=== PATIENT | female | born 1940 | race Caucasian/White ===

== ENCOUNTER 2023-09-12 07:54 | Emergency (ER) | payer OTHER, SELFPAY ==
[2023-09-12 07:55] VITALS: BP 194/93
--- NOTE | 2023-09-12 09:19 | ED.GENMED ---
History of Present Illness
General
Chief Complaint: Eye Problems
Source: patient
Exam Limitations: none
Time Seen by Provider: 09/12/23 08:33
Nursing documentation reviewed up to this point in time: agreed with
Travel History
Have you had any contact with someone who has COVID-19?: No
Do you have any symptoms of coronavirus? Fever > 100 degrees, chills, cough, shortness of breath, sore throat, loss of taste or smell, muscle aches, or headache?: No
History of Present Illness
History of Present Illness:
83-year-old female with past medical history of diabetes hypertension dementia presenting to the emergency department today with concerns of redness and irritation to the right eye over the past few days. They do report having cataract surgery 2
years ago well. Denies significant changes in vision or additional concerns.
Past History
Past History
ED Past Medical History: Asthma, HTN, NIDDM and Other (Dementia, Kidney stones)
ED Past Surgical History: Cholecystectomy and Other (Eye and ear surgery)
Social History
Tobacco: Non-smoker
Alcohol: None
Personal:
Living: with family
Review of Systems
Review of Systems
Allergies reviewed?: Yes
All Other Systems: ROS reviewed and negative except as documented in HPI and ROS
Phy Exam
Physical Exam
Physical Exam:
GENERAL: Alert , in no apparent distress
EYE: Redness and swelling to the eyelids as well as the conjunctiva. Ciliary sparing normal-appearing anterior chamber normal eye pressures of 16 and 17 with multiple assessments with the tonometer. No foreign body seen no fluorescein uptake to
the cornea. Normal extraocular movements and pupil reaction. Patient able to see in all quadrants. Patient able to correctly identify numbers with the and claims that her vision is normal. Pupils equal and reactive
NECK: Supple, no significant adenopathy.
ENT: o/p clr, mmm.
CARDIAC: Regular rate and rhythm .
LUNGS: Clear breath sounds bilaterally, no acute respiratory distress, no wheezes/rales/rhonchi
ABDOMEN: Soft, without focal tenderness, no r/g, no cvat
NEUROLOGICAL: Alert and oriented, no focal neuro deficits
SKIN: Warm and dry, skin intact.
MUSCULOSKELETAL: No edema, well perfused.
PSYCH: Normal and appropriate interaction.
Course
Orders/Labs/Results
Orders:
Orders
09/12/23 09:13
Amoxicillin 875 mg/Clav 125 mg [Augmentin 875 mg/125 mg] 1 tablet PO NOW STA
Erythromycin (Ilotycin) [Erythromycin 0.5% Ophthalmic Ointment] See Dose Instructions OPHTH NOW STA
Vital Signs
Initial and Last Documented VS:
Initial Vital Signs
Temp Pulse Resp BP Pulse Ox
98.2 F 63 18 194/93 93
09/12/23 07:55 09/12/23 07:55 09/12/23 07:55 09/12/23 07:55 09/12/23 07:55
Last Documented Vital Signs
Temp Pulse Resp BP Pulse Ox
98.2 F 63 18 194/93 93
09/12/23 07:55 09/12/23 07:55 09/12/23 07:55 09/12/23 07:55 09/12/23 07:55
MDM/Problems Addressed
MDM/Problems Addressed:
83-year-old female presenting to the emergency department today with concerns of redness and irritation to the right eye over the past few days. Here she has a reassuring examination other than redness and irritation but also some swelling to the
surrounding eyelids potentially consistent with an early preseptal cellulitis or conjunctivitis. Patient started on erythromycin as well as Augmentin. Otherwise no evidence of acute angle-closure glaucoma considering normal pressures normal
corneal examination. Good extraocular movements and good vision. Stable for discharge return precautions given. Additionally the patient had an elevated blood pressure here it was initially 190 and then she took her normal daily blood pressure
medications it then improved to the 170s over 80s. She denies any chest pain shortness of breath or any signs of hypertensive emergency. She will follow-up closely with the primary care doctor.
*Critical Care Note
Total Time (30-74mins, 75-104mins- exclusive of procedures): Not Applicable
ED Attending Note
-
Portions of this chart may have been created with voice recognition software.� Occasional wrong word or��sound alike� substitutions may have occurred due to the inherent limitations of voice recognition software.
Discharge Plan
Departure
Patient Disposition: Home (Routine Discharge)
Date of Disposition: 09/12/23
Time of Disposition: :
Patient with high blood pressure during this ER visit?: Yes
Condition: Good
Covid-19: Not Applicable
Discharge Problem:
Preseptal cellulitis of right eye, HBP (high blood pressure)
Instructions: Conjunctivitis ([place]keye) (DC), BLOOD PRESSURE
Prescriptions:
New
amoxicillin-pot clavulanate 875-125 mg tablet
1 tab PO BID 7 Days Qty: 14 0RF
No Action
fluconazole 200 mg tablet
200 mg PO .[id number]
Patient Comments:
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
acetaminophen [Tylenol] 325 mg Tablet
650 mg PO QIDPRN PRN (Reason: mild pain)
diphenhydramine HCl [Benadryl] 25 mg Capsule
25 mg PO DAILYPRN PRN (Reason: allergies)
nystatin 100,000 unit/gram Powder
1 applic TOPICAL HS
ipratropium-albuterol 0.5 mg-3 mg(2.5 mg base)/3 mL Solution For Nebulization
3 ml inhalation R BID Qty: 60 0RF
ipratropium-albuterol 0.5 mg-3 mg(2.5 mg base)/3 mL Solution For Nebulization
3 ml inhalation R Q4HPRN PRN (Reason: sob or wheezing) Qty: 30 0RF
valsartan 80 mg Tablet
160 mg PO DAILY Qty: 60 0RF
amlodipine 5 mg Tablet
5 mg PO DAILY Qty: 30 0RF
budesonide 0.25 mg/2 mL Suspension For Nebulization
0.25 mg inhalation R BID Qty: 60 0RF
prednisone 10 mg tablet
10 mg feeding tube DAILY Qty: 30 0RF
Rx Instructions:
Taper: 40mg daily x 3 days, 30mg daily x 3 days, 20mg daily x 3 days, 10mg daily x 3 days
Referrals:
Bradford Irene I., DO [Family Provider] -
Activity Restrictions/Additional Instructions:
You came to the emergency department today with concerns of eye irritation. You are found to have likely infection to the outer eye. Please use the erythromycin 3 times daily as well as the twice daily for the next 7 days. Please have close with
the primary care doctor for your blood pressure. Return to the emergency department for any worsening, new or concerning symptoms.
Interventions
Interventions:
*Risk Screen - Suicide Last Done: 09/12/23 07:58
*General Assessment Last Done: 09/12/23 07:58
*Neglect/Abuse Screening Last Done: 09/12/23 07:58
ED- Fall Risk Assessment Last Done: 09/12/23 08:28
*ED COVID-19 Vaccine History Last Done: 09/12/23 08:28
Discharge Date and Time
Print Language: ICELANDIC
[2023-09-12 09:21] VITALS: BMI 27.0
[2023-09-12] MEDS: ERYTHROMYCIN 0.5% OPHTHALMIC OINTMENT 1 APPLIC OPHTH (09:32)
[2023-09-12] MEDS: AUGMENTIN 875 MG/125 MG 1 TABLET PO (09:32)
== END 2023-09-12 09:53 | disposition home or self-care (01) ==
LOC: EMR 07:54
PROVIDERS: EMERGENCY PHYSICIAN Emergency Medicine; FAMILY PHYSICIAN Internal Medicine
DX: L03.213 Periorbital cellulitis (principal); I10 Essential (primary) hypertension; H53.8 Other visual disturbances; J45.909 Unspecified asthma, uncomplicated; E11.9 Type 2 diabetes mellitus without complications; F03.90 Unspecified dementia, unspecified severity, without behavioral disturbance, psychotic disturbance, mood disturbance, and anxiety; Z87.442 Personal history of urinary calculi; Z90.49 Acquired absence of other specified parts of digestive tract
CPT/HCPCS: 99282

== ENCOUNTER 2023-12-02 16:32 | Emergency (ER) | payer OTHER, SELFPAY ==
[2023-12-02 16:34] VITALS: BP 202/98
[2023-12-02 17:38] VITALS: BP 193/90; BMI 31.1
[2023-12-02 18:00] VITALS: BP 191/89
[2023-12-02 18:19] LABS: % Basophils 0.5 % (0-2); % Eosinophils 1.4 % (0-6); % Immature Granulocytes 0.6 % (0-0.5); % Lymphocytes 22.9 % (20.5-51.1); % Monocytes 7.5 % (1.7-9.3); % Neutrophils 67.1 % (42.2-75.2); Absolute Basophils 0.1 10^3/uL (0-0.2); Absolute Eosinophils 0.2 10^3/uL (0-0.7); Absolute Immature Granulocytes 0.1 10^3/uL (0-0.05); Absolute Lymphocytes 2.6 10^3/uL (1.2-3.4); Absolute Monocytes 0.9 10^3/uL (0.1-0.6); Absolute Neutrophils 7.8 10^3/uL (1.4-6.5); Hemoglobin 14.7 g/dL (12.0-16.0); Mean Corpuscular Hgb 30.3 pg (27.0-31.0); Mean Corpuscular Volume 86.6 fL (81.0-99.0); Mean Platelet Volume 10.8 fL (7.4-10.4); Nucleated Red Blood Cells % 0 %; Platelet Count 275 10^3/uL (130-400); Red Blood Cell Count 4.85 10^6/uL (4.20-5.40); Red Cell Dist. Width 13.6 % (11.5-14.5); White Blood Cell Count 11.6 10^3/uL (4.8-10.8)
[2023-12-02 18:46] LABS: ALT (SGPT) 19 U/L (0-35); AST (SGOT) 29 U/L (14-36); Albumin 4.8 g/dl (3.5-5.0); Alkaline Phosphatase 103 U/L (38-126); Blood Urea Nitrogen 19 mg/dl (7-17); Calcium 11.4 mg/dl (8.4-10.2); Carbon Dioxide 24 mmol/L (22-30); Chloride 104 mmol/L (98-107); Estimated Creatinine Clearance 52 ml/min; Glucose 124 mg/dl (70-99); Potassium 4.5 mmol/L (3.5-5.1); Sodium 141 mmol/L (135-145); Total Bilirubin 1.2 mg/dl (0.2-1.3); Total Protein 8.7 g/dl (6.3-8.2); eGFR > 60.00
[2023-12-02 19:00] VITALS: BP 171/76
--- NOTE | 2023-12-02 19:24 | ED.GENMED ---
History of Present Illness
General
Chief Complaint: Blood Pressure Problem
Source: patient and family
Exam Limitations: none
Time Seen by Provider: 12/02/23 19:06
Nursing documentation reviewed up to this point in time: agreed with
History of Present Illness
History of Present Illness:
83-year-old Bulgarian lady with hypertension chronic lung disease accompanied by by her daughter who is her malt specifications control assistant was not present open about 3 weeks ago when she was there she had her meds adjusted put on combination med calcium channel thien
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
dizzy vomited some numbness and tingling of her bilateral arms, daughter gave her a dose of her evening valsartan appears to be similar medication to the one described although did not have the hydrochlorothiazide she vomited that up, brought here
to the ER hypertensive, denied any chest pain has chronic leg edema she is hungry
Past History
Past History
ED Past Medical History: Asthma, HTN, NIDDM and Other (Dementia, Kidney stones)
ED Past Surgical History: Cholecystectomy and Other (Eye and ear surgery)
Social History
Tobacco: Non-smoker
Alcohol: None
Drug: None
Personal:
Living: with family
Employment: Retired
Review of Systems
Review of Systems
Other source history: family
All Other Systems: Not applicable
Constitutional: Denies fever or chills
Respiratory: Denies cough, hemoptysis or trouble breathing
Cardiac: Denies diaphoresis
ABD/GI: Reports nausea and vomiting
: Reports no symptoms
Musculoskeletal: Reports edema
Neurological: Reports headache and weakness
Endocrine: Reports no symptoms
Phy Exam
Physical Exam
Physical Exam:
Physical Exam
General: no apparent distress, not acutely ill
Neck: No jaundice
Heart: Regular
Lungs: Bibasilar crackle
Abdomen: Nontender
Neuro: alert and oriented. no focal neurological deficits
Skin: no rash
Psychiatric: cooperative
Extremities: Edema is present
Course
Orders/Labs/Results
Orders:
Orders
12/02/23 16:37
ECG [Electrocardiogram (*1)] Urgent
Reason for Study: Vertigo / Dizzy
EKG- Treatment ONCE
12/02/23 18:13
Complete Blood Count/With Diff Urgent
Comprehensive Metabolic Panel Urgent
12/02/23 19:21
Add On- LAB Urgent
Tests Added?: pBNP
CT Head W/o Iv Contrast Urgent
Comment:
Reason For Exam: vomiting
12/02/23 19:22
CR Chest - 2 Views Urgent
Comment:
Reason For Exam: chf
12/02/23 19:52
NT-proBNP Urgent
Troponin I Urgent
12/02/23 20:44
Valsartan [Diovan] 80 mg PO NOW STA
Abnormal Lab Results
12/02/23
18:13
WBC 11.6 H 10^3/uL
(4.8-10.8)
MPV 10.8 H fL
(7.4-10.4)
Abs Immat Gran (auto) 0.1 H 10^3/uL
(0-0.05)
Absolute Neuts (auto) 7.8 H 10^3/uL
(1.4-6.5)
Absolute Monos (auto) 0.9 H 10^3/uL
(0.1-0.6)
Immature Gran % 0.6 H %
(0-0.5)
BUN 19 H mg/dl
(7-17)
Glucose 124 H mg/dl
(70-99)
Calcium 11.4 H mg/dl
(8.4-10.2)
Total Protein 8.7 H g/dl
(6.3-8.2)
12/02/23 18:13
12/02/23 18:13
Vital Signs
Initial and Last Documented VS:
Initial Vital Signs
Temp Pulse Resp BP Pulse Ox
97.6 F 73 20 202/98 96
12/02/23 16:34 12/02/23 16:34 12/02/23 16:34 12/02/23 16:34 12/02/23 16:34
Last Documented Vital Signs
Temp Pulse Resp BP Pulse Ox
97.6 F 67 14 171/76 94
12/02/23 16:34 12/02/23 20:00 12/02/23 20:00 12/02/23 19:00 12/02/23 20:00
MDM/Problems Addressed
Differential Diagnosis Includes:
Accelerated hypertension intracerebral hemorrhage conceivably ACS or heart failure
MDM/Problems Addressed:
High blood pressure vomiting
Chronic conditions affecting care: HTN
Acute Exacerbation and/or Progression of Chronic Illness: HTN
*Radiology
Radiology exam reviewed: preliminary read by ED provider
*Pulse Oximetry
Patient hypoxic: no
*EKG
Interpreted by ED Provider?: Yes
Interpretation: abnormal
Comparison EKG: no comparison EKG present
Heart Rate: 78
Rate: normal
Rhythm: sinus
Ischemia: non-specific ST changes
*Operations Inspector Interpretation
Rate: normal
Interpretation: normal
Heart Rate: 78
Rhythm: sinus
*Critical Care Note
Total Time (30-74mins, 75-104mins- exclusive of procedures): Not Applicable
Update Note
Update Note:
Update labs noted imaging noted CT report noted will give her her as needed blood pressure pill which she likely vomited this evening,
ED Attending Note
-
Portions of this chart may have been created with voice recognition software.� Occasional wrong word or��sound alike� substitutions may have occurred due to the inherent limitations of voice recognition software.
Discharge Plan
Departure
Patient Disposition: Home (Routine Discharge)
Date of Disposition: 12/02/23
Time of Disposition: 21:16
Patient with high blood pressure during this ER visit?: Yes
Condition: Good
Discharge Problem:
HBP (high blood pressure)
Instructions: High Blood Pressure (DC)
Prescriptions:
No Action
acetaminophen [Tylenol] 325 mg Tablet
650 mg PO QIDPRN PRN (Reason: mild pain)
amlodipine 5 mg Tablet
5 mg PO DAILY Qty: 30 0RF
Patient Comments:
12/02/23: Part of [facility] pill (Bulgarian)
montelukast 10 mg Tablet
10 mg PO DAILY
cholecalciferol (vitamin D3) [Vitamin D3] 25 mcg (1,000 unit) Tablet
25 mcg PO DAILY
Trelegy Ellipta 200-62.5-25 mcg Blister With Device
1 inh INHALATION R DAILY
valsartan-hydrochlorothiazide 160-12.5 mg Tablet
1 tab PO DAILY
Patient Comments:
12/02/23: Part of [facility] pill (Bulgarian)
valsartan 80 mg tablet
80 mg PO DAILYPRN PRN (Reason: BP>160)
Referrals:
Bradford Irene I., DO [Family Provider] - Next open appointment
Activity Restrictions/Additional Instructions:
Take your medications as prescribed, you can use Zofran for nausea or vomiting Tylenol for headache
Interventions
Interventions:
*Risk Screen - Suicide Last Done: 12/02/23 17:39
*General Assessment Last Done: 12/02/23 17:39
*Neglect/Abuse Screening Last Done: 12/02/23 17:39
ED- Cardiac Assessment Last Done: 12/02/23 18:10
ED- Neurological Assessment Last Done: 12/02/23 18:10
ED- Pulmonary Assessment Last Done: 12/02/23 18:10
Discharge Date and Time
Print Language: K[place]ILI
[2023-12-02 20:26] LABS: NT-proBNP 80.8 pg/ml; Troponin I < 0.012 ng/ml
[2023-12-02] MEDS: DIOVAN 80 MG PO (20:52)
[2023-12-02 20:54] VITALS: BP 156/76
[2023-12-02 21:00] VITALS: BP 151/82
== END 2023-12-02 21:50 | disposition home or self-care (01) ==
LOC: EMR 16:32
PROVIDERS: Emergency Medicine; EMERGENCY PHYSICIAN Emergency Medicine; FAMILY PHYSICIAN Internal Medicine
DX: R42 Dizziness and giddiness (principal); R11.2 Nausea with vomiting, unspecified; I10 Essential (primary) hypertension; R60.0 Localized edema; R20.0 Anesthesia of skin; E11.9 Type 2 diabetes mellitus without complications; F03.90 Unspecified dementia, unspecified severity, without behavioral disturbance, psychotic disturbance, mood disturbance, and anxiety; J45.909 Unspecified asthma, uncomplicated; Z87.442 Personal history of urinary calculi; Z90.49 Acquired absence of other specified parts of digestive tract
CPT/HCPCS: 99284; 70450; 71046; 80053; 83880; 84484; 85025; 93005

== ENCOUNTER 2024-06-21 18:16 | Emergency (ER) | payer OTHER, SELFPAY ==
[2024-06-21] VITALS (7 sets, daily range): BP systolic 150–198; BP diastolic 81–100; BMI 29.8
--- NOTE | 2024-06-21 19:42 | ED.GENMED ---
History of Present Illness
General
Chief Complaint: Blood Pressure Problem
Source: patient
Exam Limitations: none
Time Seen by Provider: 06/21/24 19:42
Nursing documentation reviewed up to this point in time: agreed with
History of Present Illness
History of Present Illness:
Patient is an 84-year-old female who presents to the ER for evaluation. Patient was brought by her daughter. Patient speaks Turkish. Daughter translating reports patient does have a history of hypertension and is on valsartan/amlodipine
combination. She reports she was complaining of feeling dizzy today and then vomited. Patient denies a sensation that room is spinning she simply felt dizzy. She had no associated chest pain or shortness of breath. No recent fever chills or
illness. She denies any headache.
Daughter reports the patient did have an episode of vomiting last night as well after eating pineapple and she reports she did not sleep last night because she was dizzy throughout the night. Daughter reports patient does have a history of dementia
and she often will eat certain foods she is not supposed to.
Past History
Past History
ED Past Medical History: Asthma, HTN, NIDDM and Other (Dementia, Kidney stones)
ED Past Surgical History: Cholecystectomy and Other (Eye and ear surgery)
Social History
Tobacco: Non-smoker
Alcohol: None
Drug: None
Personal:
Living: with family
Employment: Retired
Review of Systems
Review of Systems
Allergies reviewed?: Yes
All Other Systems: ROS reviewed and negative except as documented in HPI and ROS
Constitutional: Denies fever, fatigue or chills
EENT: Reports no symptoms
Respiratory: Reports no symptoms
Cardiac: Reports no symptoms
ABD/GI: Reports nausea and vomiting; Denies abdominal pain
: Reports no symptoms
Musculoskeletal: Reports no symptoms
Skin: Reports no symptoms
Neurological: Reports dizzy; Denies headache
Psychiatric: Reports no symptoms
Phy Exam
General Physical Exam
General Presentation: no apparent distress
General age: appears stated age
General Skin: warm and dry
General Habitus: normal
General Mental: alert
General Hydration: appears well hydrated
Cardiovascular Exam
Cardiovascular Exam: regular rate/rhythm, no murmur and normal peripheral pulses
Pulmonary Exam
Pulmonary Exam: lungs clear and no respiratory distress
Neurological Exam
Neurological Exam: alert and oriented x3
Musculoskeletal Exam
Musculoskeletal Exam: full ROM
Skin Exam
Skin Exam: normal color and warm/dry
Psychiatric Exam
Psychiatric Exam: normal mood/affect
Course
Orders/Labs/Results
Orders:
Orders
06/21/24 18:24
Electrocardiogram (*1) Urgent
Reason for Study: Chest Pain
EKG- Treatment ONCE
06/21/24 20:12
CT Head W/o Iv Contrast Urgent
Comment:
Reason For Exam: headache/elevated blood pressure
06/21/24 20:34
COVID-19 Antigen Urgent
Source: Nasal Swab
Influenza A+B Rapid Molecular Urgent
MARA Source: Nasal Swab
Specimen Description:
06/21/24 21:10
Complete Blood Count/With Diff Urgent
Comprehensive Metabolic Panel Urgent
Troponin I Urgent
Abnormal Lab Results
06/21/24
21:10
WBC 11.3 H 10^3/uL
(4.8-10.8)
MPV 10.6 H fL
(7.4-10.4)
Abs Immat Gran (auto) 0.1 H 10^3/uL
(0-0.05)
Absolute Neuts (auto) 7.6 H 10^3/uL
(1.4-6.5)
Absolute Monos (auto) 0.8 H 10^3/uL
(0.1-0.6)
Glucose 141 H mg/dl
(70-99)
Calcium 11.8 H mg/dl
(8.4-10.2)
Total Protein 9.0 H g/dl
(6.3-8.2)
06/21/24 21:10
06/21/24 21:10
Vital Signs
Initial and Last Documented VS:
Initial Vital Signs
Temp Pulse Resp BP Pulse Ox
98.3 F 77 18 197/100 96
06/21/24 18:21 06/21/24 18:21 06/21/24 18:21 06/21/24 18:21 06/21/24 18:21
Last Documented Vital Signs
Temp Pulse Resp BP Pulse Ox
98.3 F 63 16 163/90 96
06/21/24 18:21 06/21/24 23:30 06/21/24 23:30 06/21/24 23:00 06/21/24 23:30
MDM/Problems Addressed
MDM/Problems Addressed:
Patient is an 84-year-old female who was brought by daughter for evaluation. Daughter reports patient does have a history of elevated blood pressure and is on losartan/amlodipine. Patient was seen here for dizziness. Patient lives with daughter
and daughter reports patient does have a history dementia and is a very difficult historian. Patient often will eat various types of food and it does not feel well after eating. Last night for instance she ate a lot of pineapple and vomited.
Patient did complain of feeling dizzy last night. Upon presentation patient has no complaints of dizziness no headache no chest pain no shortness of breath. Her blood pressure initially was 197/100 however has gradually decreased. Daughter
reports patient is at baseline mental status.
CT head negative patient has no neurological deficits on exam answering questions appropriately daughter assisting in translation. Patient does follow commands.
No acute findings on EKG no chest pain. Labs unremarkable including normal renal function.
Patient is no acute distress feeling better. will d/c home with clost outpt f/u by pcp in 2 d for re-evaluatin of s/s and blood pressure.
Chronic conditions affecting care:
Hypertension dementia
*Critical Care Note
Total Time (30-74mins, 75-104mins- exclusive of procedures): Not Applicable
ED Attending Note
-
Portions of this chart may have been created with voice recognition software.� Occasional wrong word or��sound alike� substitutions may have occurred due to the inherent limitations of voice recognition software.
Discharge Plan
Departure
Patient Disposition: Home (Routine Discharge)
Date of Disposition: 06/21/24
Time of Disposition: 23:06
Patient with high blood pressure during this ER visit?: Yes
Condition: Fair
Covid-19: Not Applicable
Discharge Problem:
Elevated blood pressure reading
Instructions: High Blood Pressure (DC), BLOOD PRESSURE
Prescriptions:
No Action
acetaminophen [Tylenol] 325 mg Tablet
650 mg PO QIDPRN PRN (Reason: mild pain)
amlodipine 5 mg Tablet
5 mg PO DAILY Qty: 30 0RF
Patient Comments:
12/02/23: Part of [facility] pill (Sammarinese)
montelukast 10 mg Tablet
10 mg PO DAILY
cholecalciferol (vitamin D3) [Vitamin D3] 25 mcg (1,000 unit) Tablet
25 mcg PO DAILY
Trelegy Ellipta 200-62.5-25 mcg Blister With Device
1 inh INHALATION R DAILY
valsartan-hydrochlorothiazide 160-12.5 mg Tablet
1 tab PO DAILY
Patient Comments:
12/02/23: Part of [facility] pill (Sammarinese)
valsartan 80 mg tablet
80 mg PO DAILYPRN PRN (Reason: BP>160)
ondansetron 4 mg tablet,disintegrating
4 mg PO BID-TID PRN (Reason: nausea and vomiting) Qty: 10 0RF
Referrals:
Bradford Irene I., DO [Family Provider] -
Activity Restrictions/Additional Instructions:
Patient must follow-up with family doctor in the next 2 to 3 days. Return if any worsening of symptoms.
You are given a copy of her CAT scan port to review with patient's family doctor.
Patient should continue to take her blood pressure medication as previously prescribed
Interventions
Interventions:
*General Assessment Last Done: 06/21/24 19:46
*ED- Fall Risk Assessment Last Done: 06/21/24 19:46
*ED COVID-19 Vaccine History Last Done: 06/21/24 19:46
*Nursing Disposition Last Done: 06/21/24 23:46
ED- Cardiac Assessment Last Done: 06/21/24 19:46
ED- Neurological Assessment Last Done: 06/21/24 19:46
ED- Pulmonary Assessment Last Done: 06/21/24 19:46
Discharge Date and Time
Discharge Date/Time: 06/21/24 23:49
Print Language: [place]
[2024-06-21 21:02] LABS: COVID-19 Antigen Negative (Negative)
[2024-06-21 21:18] LABS: % Basophils 0.6 % (0-2); % Eosinophils 1.3 % (0-6); % Immature Granulocytes 0.5 % (0-0.5); % Lymphocytes 23.7 % (20.5-51.1); % Monocytes 6.6 % (1.7-9.3); % Neutrophils 67.3 % (42.2-75.2); Absolute Basophils 0.1 10^3/uL (0-0.2); Absolute Eosinophils 0.2 10^3/uL (0-0.7); Absolute Immature Granulocytes 0.1 10^3/uL (0-0.05); Absolute Lymphocytes 2.7 10^3/uL (1.2-3.4); Absolute Monocytes 0.8 10^3/uL (0.1-0.6); Absolute Neutrophils 7.6 10^3/uL (1.4-6.5); Hematocrit 46.6 % (37.0-47.0); Hemoglobin 15.5 g/dL (12.0-16.0); Mean Corp Hgb Conc. 33.3 g/dL (33.0-37.0); Mean Corpuscular Hgb 29.7 pg (27.0-31.0); Mean Corpuscular Volume 89.3 fL (81.0-99.0); Mean Platelet Volume 10.6 fL (7.4-10.4); Nucleated Red Blood Cells % 0 %; Platelet Count 269 10^3/uL (130-400); Red Blood Cell Count 5.22 10^6/uL (4.20-5.40); Red Cell Dist. Width 13.8 % (11.5-14.5); White Blood Cell Count 11.3 10^3/uL (4.8-10.8)
[2024-06-21 21:32] LABS: ALT (SGPT) 19 U/L (0-35); AST (SGOT) 24 U/L (14-36); Albumin 4.8 g/dl (3.5-5.0); Alkaline Phosphatase 123 U/L (38-126); Blood Urea Nitrogen 17 mg/dl (7-17); Calcium 11.8 mg/dl (8.4-10.2); Carbon Dioxide 27 mmol/L (22-30); Chloride 104 mmol/L (98-107); Estimated Creatinine Clearance 50 ml/min; Glucose 141 mg/dl (70-99); Potassium 4.2 mmol/L (3.5-5.1); Sodium 139 mmol/L (135-145); Total Bilirubin 0.9 mg/dl (0.2-1.3); eGFR > 60.00
[2024-06-21 21:44] LABS: Troponin I < 0.012 ng/ml
== END 2024-06-21 23:49 | disposition home or self-care (01) ==
LOC: EMR 18:16
PROVIDERS: Emergency Medicine; Nurse Practitioner; EMERGENCY PHYSICIAN Emergency Medicine; FAMILY PHYSICIAN Internal Medicine
DX: I10 Essential (primary) hypertension (principal); E11.9 Type 2 diabetes mellitus without complications; F03.90 Unspecified dementia, unspecified severity, without behavioral disturbance, psychotic disturbance, mood disturbance, and anxiety; J45.909 Unspecified asthma, uncomplicated; Z90.49 Acquired absence of other specified parts of digestive tract; Z11.52 Encounter for screening for COVID-19; Z79.899 Other long term (current) drug therapy
CPT/HCPCS: 99284; 70450; 80053; 84484; 85025; 87502; 87811; 93005

== ENCOUNTER 2025-02-07 08:29 | Emergency (ER) | payer OTHER, SELFPAY ==
[2025-02-07] VITALS (7 sets, daily range): BP systolic 135–180; BP diastolic 52–90
--- NOTE | 2025-02-07 09:13 | EDRN ---
Dr. Francis in room w/ pt at this time.
--- NOTE | 2025-02-07 09:31 | ED.GENMED ---
Addendum entered and electronically signed by POP Melissa 02/09/25 07:31:
Urine culture positive for Streptococcus agalactiae sensitive to cefazolin , a script for cefdinir was sent to pt's pharmacy. Pt is icelandic speaking I spoke to her daughter over the phone and d/c urine results and antibiotic and importance of
close f/u with pcp.
Original Note:
History of Present Illness
General
Chief Complaint: Abdominal Pain
Source: patient
Exam Limitations: none
Time Seen by Provider: 02/07/25 08:58
Nursing documentation reviewed up to this point in time: agreed with
History of Present Illness
History of Present Illness:
Patient with history of cholecystectomy, presents to ED secondary to persistent upper abdominal pain over the past 2 days, which started shortly after having dinner consisting of salad, rice, and steak. Since then, patient has had persistent
discomfort, worse when laying down, or eating. Patient reports constant nausea sensation without vomiting. Abdominal pain described as sharp, nonradiating. Denies trauma. Denies fever or chills. Denies diarrhea. In fact, patient has not had
bowel movement for the past 2 days. Denies previous history of similar symptoms. Denies recent change in medications or diet. Patient has taken omeprazole at home, without improvement symptoms.
Past History
Past History
ED Past Medical History: Asthma, HTN, NIDDM and Other (Dementia, Kidney stones)
ED Past Surgical History: Cholecystectomy and Other (Eye and ear surgery)
Social History
Tobacco: Non-smoker
Alcohol: None
Drug: None
Personal:
Living: with family
Employment: Retired
Review of Systems
Review of Systems
Allergies reviewed?: Yes
All Other Systems: ROS reviewed and negative except as documented in HPI and ROS
Constitutional: Reports no symptoms
Respiratory: Denies cough
Cardiac: Denies chest pain
ABD/GI: Reports abdominal pain and nausea; Denies vomiting or diarrhea
: Reports no symptoms
Skin: Reports no symptoms
Neurological: Reports no symptoms
Phy Exam
Physical Exam
Physical Exam:
Physical Exam
General: mild distress, not acutely ill. afebrile
Head: nc/at. eomi
Neck: supple. normal range of motion. normal posterior pharynx
Heart: s1/s2 regular rate and rhythm
Lungs: no acute respiratory distress. clear bilaterally
Abdomen: normal bowel sounds. no distention. mild epigastric tenderness to palpation.
Neuro: alert and oriented x 3. no focal neurological deficits
Skin: no rash
Psychiatric: well kept. interactive and cooperative
Extremities: no edema. no calf tenderness
Course
Orders/Labs/Results
Orders:
Orders
02/07/25 09:21
Mag Hydrox/Al Hydrox/Simeth [Maalox] 30 ml Phenobarb/Hyoscy/Atropine/Scop [] 10 ml PO NOW
Pantoprazole [Protonix IV] 40 mg IV NOW STA
02/07/25 09:22
US Abdomen Complete/Upper Urgent
Comment:
Reason For Exam: epigastric pain
02/07/25 09:27
Mag Hydrox/Al Hydrox/Simeth [Maalox] 30 ml .ROUTE .STK-MED ONE
Phenobarb/Hyoscy/Atropine/Scop [] 10 ml .ROUTE .STK-MED ONE
02/07/25 10:52
Urinalysis Reflex To Culture Urgent
Date Specimen was Collected: 02/07/25
Time Specimen was Collected: 10:46
Urine Microscopic Reflex Cult Urgent
Urine Culture Urgent
MARA Source: U
Specimen Description:
Date Specimen was Collected: 02/07/25
Time Specimen was Collected: 10:46
02/07/25 11:12
0.9% Sodium Chloride 500 ml [Nss] 500 ml IV BOLUS
02/07/25 11:46
Complete Blood Count/With Diff Urgent
Comprehensive Metabolic Panel Urgent
Lipase Urgent
02/07/25 12:44
Potassium Chloride [KCl] 40 meq PO NOW STA
Abnormal Lab Results
02/07/25 02/07/25
10:52 11:46
RBC 3.70 L 10^6/uL
(4.20-5.40)
Hgb 11.3 L g/dL
(12.0-16.0)
Hct 34.1 L %
(37.0-47.0)
MPV 11.3 H fL
(7.4-10.4)
Abs Immat Gran (auto) 0.1 H 10^3/uL
(0-0.05)
Absolute Monos (auto) 0.7 H 10^3/uL
(0.1-0.6)
Immature Gran % 0.7 H %
(0-0.5)
Monocytes % 10.6 H %
(1.7-9.3)
Potassium 3.4 L mmol/L
(3.5-5.1)
Chloride 114 H mmol/L
(98-107)
Calcium 8.2 L mg/dl
(8.4-10.2)
Total Protein 5.8 L g/dl
(6.3-8.2)
Albumin 3.0 L g/dl
(3.5-5.0)
Ur Occult Blood Reflex 1+ A
(Negative)
Leukocyte Esterase Rfl 3+ A
(Negative)
Urine WBC (Reflex) 70-80 A /HPF
(0-5)
Urine Bacteria (Reflex) Many A
(Negative)
Urine Albumin (Reflex) 1+ A
(Neg - Trace)
02/07/25 11:46
02/07/25 11:46
Vital Signs
Initial and Last Documented VS:
Initial Vital Signs
Temp Pulse Resp BP Pulse Ox
97.8 F 68 16 153/81 92
02/07/25 08:32 02/07/25 08:32 02/07/25 08:32 02/07/25 08:32 02/07/25 08:32
Last Documented Vital Signs
Temp Pulse Resp BP Pulse Ox
97.8 F 71 16 135/60 94
02/07/25 08:32 02/07/25 14:00 02/07/25 14:00 02/07/25 14:00 02/07/25 14:00
MDM/Problems Addressed
MDM/Problems Addressed:
Patient with an unremarkable workup in ED, including blood work and abdominal ultrasound. In addition, after treatment, patient reports significant improvement symptoms. Patient is able to take water, medication, and applesauce, without any
difficulty. As such, esophageal stricture/foreign body obstruction, less likely. Symptoms are concerning for likely esophagitis versus gastritis versus ulcer. After discussion with patient and daughter, who lives with the patient, decision made
to discharge patient home at this time, without any further workup. Patient will be treated conservatively with recommendation for bland diet, Carafate, PPI, along with close GI follow-up as an outpatient. Return precautions provided, i.e.
fever/worsening pain/vomiting.
In addition, discussed urinalysis result. Patient has been experiencing urinary frequency, without any other symptoms. Patient has not been treated for UTI in the recent past. In light of patient's abdominal discomfort, with potential side effect
of GI symptoms related to antibiotics, decision made to withhold antibiotics at this time. Will wait for urine culture, prior to initiating antibiotics.
*Pulse Oximetry
SaO2: 92
Oxygen Mode of Delivery: Room air
Patient hypoxic: no
*Critical Care Note
Total Time (30-74mins, 75-104mins- exclusive of procedures): Not Applicable
ED Attending Note
-
Portions of this chart may have been created with voice recognition software.� Occasional wrong word or��sound alike� substitutions may have occurred due to the inherent limitations of voice recognition software.
Discharge Plan
Departure
Patient Disposition: Home (Routine Discharge)
Date of Disposition: 02/07/25
Time of Disposition: 14:25
Patient with high blood pressure during this ER visit?: Yes
Condition: Good
Discharge Problem:
Abdominal pain
Instructions: Martin diet, Abdominal Pain
Prescriptions:
New
sucralfate 100 mg/mL suspension
10 ml PO ACHS Qty: 400 0RF
omeprazole 20 mg capsule,delayed release(DR/EC)
20 mg PO DAILY Qty: 30 0RF
No Action
acetaminophen [Tylenol] 325 mg Tablet
650 mg PO QIDPRN PRN (Reason: mild pain)
amlodipine 5 mg Tablet
5 mg PO DAILY Qty: 30 0RF
Patient Comments:
12/02/23: Part of [facility] pill ([facility])
montelukast 10 mg Tablet
10 mg PO DAILY
cholecalciferol (vitamin D3) [Vitamin D3] 25 mcg (1,000 unit) Tablet
25 mcg PO DAILY
Trelegy Ellipta 200-62.5-25 mcg Blister With Device
1 inh INHALATION R DAILY
valsartan-hydrochlorothiazide 160-12.5 mg Tablet
1 tab PO DAILY
Patient Comments:
12/02/23: Part of [facility] pill ([facility])
valsartan 80 mg tablet
80 mg PO DAILYPRN PRN (Reason: BP>160)
ondansetron 4 mg tablet,disintegrating
4 mg PO BID-TID PRN (Reason: nausea and vomiting) Qty: 10 0RF
Referrals:
Zaheer Irene MD [Family Provider]
Eron Blanton MD [Active, Gastroenterology]
Activity Restrictions/Additional Instructions:
As discussed, please follow-up with your primary care physician and/or referred GI physician for further evaluation treatment. Please return to ED with worsening symptoms, i.e. fever/worsening pain/vomiting. Your prescriptions have been sent
electronically to [facility] pharmacy in [place].
Interventions
Interventions:
*Risk Screen - Suicide Last Done: 02/07/25 08:32
*General Assessment Last Done: 02/07/25 09:50
*Neglect/Abuse Screening Last Done: 02/07/25 08:32
*ED- Fall Risk Assessment Last Done: 02/07/25 09:50
*ED COVID-19 Vaccine History Last Done: 02/07/25 09:50
*ED Influenza Vaccine History Last Done: 02/07/25 09:50
*Nursing Disposition Last Done: 02/07/25 14:40
[facility]udg[facility]-Whybfkcd[facility] Assessment Last Done: 02/07/25 09:50
Discharge Date and Time
Discharge Date/Time: 02/07/25 14:40
Print Language: GUINEAN
[2025-02-07] MEDS: MAALOX 40 PO (09:33)
--- NOTE | 2025-02-07 09:55 | EDRN ---
Unable to obtain IV access w/ TT to VAT RN at 9:49 w/ one unsuccessful attempt and she will be down.
--- NOTE | 2025-02-07 10:43 | EDRN ---
Pt OOB to BR attempting urine spec at this time. Warm blankets in room to wrap pt's arms for VAT RN who was TT's at this time.
--- NOTE | 2025-02-07 10:58 | EDRN ---
Alyssa LAURENT RN in room w/ pt. Urine spec obtained and sent to lab.
[2025-02-07 11:04] LABS: Urine Character Slightly Cloudy (Clear)
[2025-02-07] MEDS: PROTONIX IV 40 MG IV (11:09)
[2025-02-07] MEDS: NSS 500 IV (11:13)
[2025-02-07 11:34] LABS: Urine Red Blood Cell 0-2 /HPF (0-2)
[2025-02-07 11:35] LABS: Urine White Cell 70-80 /HPF (0-5)
--- NOTE | 2025-02-07 11:50 | EDRN ---
FURNACE PACKER was unable to get labs when started IV access. Attempted to call phlebotomy but no response so I contacted Prashanth RN to do a US blood draw and he just was able to get labs and started a #20 P in R upper arm.
[2025-02-07 12:09] LABS: Hematocrit 34.1 % (37.0-47.0); Hemoglobin 11.3 g/dL (12.0-16.0); Mean Corp Hgb Conc. 33.1 g/dL (33.0-37.0); Mean Corpuscular Volume 92.2 fL (81.0-99.0); Nucleated Red Blood Cells % 0 %; Platelet Count 199 10^3/uL (130-400); Red Cell Dist. Width 14.0 % (11.5-14.5)
[2025-02-07 12:15] LABS: ALT (SGPT) 16 U/L (0-35); AST (SGOT) 17 U/L (14-36); Albumin 3.0 g/dl (3.5-5.0); Alkaline Phosphatase 53 U/L (38-126); Blood Urea Nitrogen 14 mg/dl (7-17); Calcium 8.2 mg/dl (8.4-10.2); Carbon Dioxide 22 mmol/L (22-30); Chloride 114 mmol/L (98-107); Glucose 78 mg/dl (70-99); Lipase 51 U/L (23-300); Potassium 3.4 mmol/L (3.5-5.1); Sodium 141 mmol/L (135-145); Total Protein 5.8 g/dl (6.3-8.2); eGFR > 60.00
--- NOTE | 2025-02-07 12:25 | EDRN ---
Pt ambulated to BR and back to stretcher w/ daughter at this time.
--- NOTE | 2025-02-07 12:45 | EDRN ---
Dr. Francis in room w/ pt.
[2025-02-07] MEDS: KCL 40 MEQ PO (12:56)
--- NOTE | 2025-02-07 13:07 | EDRN ---
Pt had her potassium in apple sauce and then ate rest of apple sauce and is now saying she wishes to vomit. Dr. Francis in to see pt. Daughter asking about BP med once again but on hold due to nausea.
== END 2025-02-07 14:40 | disposition home or self-care (01) ==
LOC: EMR 08:29
PROVIDERS: EMERGENCY PHYSICIAN Emergency Medicine; FAMILY PHYSICIAN Thoracic Surgery (Cardiothoracic Vascular Surgery)
DX: R10.13 Epigastric pain (principal); F03.90 Unspecified dementia, unspecified severity, without behavioral disturbance, psychotic disturbance, mood disturbance, and anxiety; E11.9 Type 2 diabetes mellitus without complications; I10 Essential (primary) hypertension; J45.909 Unspecified asthma, uncomplicated
CPT/HCPCS: 99284; 96374; 96361; 76700; 80053; 81003; 81015; 83690; 85025; 87077; 87086; 87147